=== PATIENT | female | born 1945 | race Caucasian/White ===

== ENCOUNTER 2016-11-22 13:32 | Emergency (ER) ==
[2016-11-22 14:29] LABS: MANUAL DIFF NEEDED? NO
[2016-11-22 14:57] LABS: BASO% 0.6 % (0.0-0.8); EOS# 0.05 X1000 (0.0-0.7); EOS% 0.6 % (0.0-10.0); HEMATOCRIT 39.4 % (37.0-47.0); HEMOGLOBIN 12.7 g/dL (12.0-16.0); IMM GRAN# 0.02 X1000 (0.0-0.04); IMM GRAN% 0.3 % (0.0-0.5); LYMPH# 1.85 X1000 (1.2-3.4); LYMPH% 23.4 % (20.5-51.1); MCH 28.2 PG (27-31); MCHC 32.2 g/dL (33-37); MCV 87.6 FL (81-99); MONO# 0.54 X1000 (0.11-0.59); MONO% 6.8 % (1.7-9.3); MPV 11.1 FL (7.4-10.4); NEUT% 68.3 % (42.2-75.2); PLT 386 X1000 (130-400)
[2016-11-22 15:05] LABS: INR 3.19; PROTIME 34.2 Seconds (9.2-11.7); PTT 40.6 Seconds (22.0-36.0)
[2016-11-22 15:07] LABS: ALBUMIN 4.1 g/dL (3.5-5.0); CALCIUM 10.1 mg/dL (8.8-10.2); POTASSIUM 3.8 mmol/L (3.5-5.1); TOTAL BILIRUBIN 0.37 mg/dL (0.20-1.00); TOTAL PROTEIN 7.6 g/dL (6.3-8.3)
--- NOTE | 2016-11-22 16:39 | PROVIDER DOCUMENTATION ---
HPI-General Adult - General Chief Complaint: GI Bleed Stated Complaint: RECTAL BLEED Time Seen by Provider: 11/22/16 16:11 Source: patient Allergies/Adverse Reactions: Patient Allergies Allergy/AdvReac Type Severity Reaction Status Date / Time chlophedianol HCl * Allergy Intermediate Unknown Verified 10/31/16 18:38 [From [facility]] codeine [Codeine] Allergy Intermediate Unknown Verified 10/31/16 18:38 dexbrompheniramine maleate * Allergy Intermediate Unknown Verified 10/31/16 18: 38 [From [facility]] metronidazole [From Flagyl] Allergy Intermediate Unknown Verified 10/31/16 18:38 Metronidazole HCl * Allergy Intermediate Unknown Verified 10/31/16 18:38 [From Flagyl] pseudoephedrine HCl * Allergy Intermediate Unknown Verified 10/31/16 18:38 [From [facility]] Home Medications: Home Medication List Medication Instructions Recorded Confirmed Last Taken Type Aspirin 325 mg PO DAILY 06/16/16 10/31/16 10/31/16 07:30 History Dicyclomine [Bentyl] 10 mg PO TID PRN 06/16/16 10/31/16 10/31/16 07:00 History Diltiazem [Cardizem] 60 mg PO TID 06/16/16 10/31/16 10/31/16 12:00 History Glimepiride 1 tab PO DAILY 06/16/16 10/31/16 10/30/16 18:00 History Isosorbide Mononitrate E.r. [Imdur] 60 mg PO DAILY 06/16/16 10/31/16 10/31/16 07 :30 History LISINOpril [Prinivil] 20 mg PO BID 06/16/16 10/31/16 10/31/16 07:30 History Nateglinide 120 mg PO DAILY 06/16/16 10/31/16 10/31/16 07:30 History Nitroglycerin [Nitrostat] 0.4 mg SL DIRECTED PRN 06/16/16 10/31/16 Unknown History Omeprazole 20 mg PO DAILY 06/16/16 10/31/16 10/31/16 07:30 History Potassium Chloride [Klor-Con 10] 20 meq PO BID 06/16/16 10/31/16 10/31/16 07:30 History SIMVAstatin [Zocor] 40 mg PO QHS 06/16/16 10/31/16 10/30/16 18:00 History Warfarin Sodium 5 mg PO DAILY 06/16/16 10/31/16 10/30/16 19:00 History Warfarin [Coumadin] 3 mg PO DAILY 06/16/16 10/31/16 10/30/16 19:00 History Lactobacillus Rhamnosus GG 1 each PO BID #0 capsule 06/20/16 10/31/16 Unknown Rx [Culturelle] Sucralfate [Carafate Liquid] 1 gm PO Q6H #0 udc 06/20/16 10/31/16 10/31/16 07: 30 Rx Iron Polysaccharide Complex 150 mg PO BID 10/31/16 10/31/16 10/31/16 09:30 History [Nu-Iron 150] Warfarin [Coumadin] 1.5 mg PO QHS 10/31/16 10/31/16 10/30/16 19:00 History - History of Present Illness -Gen Adult Nature of Presenting Problems: Pt. is 70 yof that presents with c/o rectal bleeding that began on Saturday. Pt. reports she has a Hx of a blood clot in her bowel and is taking warafin. Pt. reports she has been feeling weak and spoke to her PCP (Dr. Okeefe) whom told her to hold off on her warafin and come to the ED for evaluation. Pt. reports the blood is mixed in with her stool and that it is bright red. Pt. denies any other symptoms at time of exam. Location of Pain/Injury: reports: none. denies: head, face, mouth, neck, chest , upper extremity, hand(s), abdomen, back, pelvis, genitalia, lower extremity, feet, upper body, lower body, generalized Pain Radiation: reports: no radiation Quality of Pain: reports: none. denies: aching, burning, cramping, dull, fullness, indigestion, pressure, sharp, stabbing, tearing, throbbing, tightness Severity: denies: mild, moderate, severe Onset/Duration: reports: abrupt, 3 days ago Timing: reports: still present. denies: improving, gone now, resolved prior to arrival, intermittent, constant, changing over time, getting worse Context/Activities at Onset: reports: none. denies: recent emotional stress, recent physical stress, recent trauma history, possible bad food, cold exposure , out of country travel Modifying Factors: improves with: nothing Associated Symptoms: reports: fatigue, malaise, other (Rectal bleeding). denies : anxiety, arm pain, back/neck pain, chest pain, constipation, cough, diaphoresis, diarrhea, dizziness, EENT symptoms, fever/chills, genitourinary problems, headaches, heartburn, joint pain, loss of appetite, muscle aches, sinus congestion/drainage, nausea, rash, seizure, shortness of breath, sensory/ motor loss, pain with inspiration, swelling/mass in abdomen, syncope, vomiting, weakness, trouble walking Similar Symptoms Previously?: Yes Recently seen or treated by another doctor?: No Review of Systems - Adult - REVIEW OF SYSTEMS - ADULT Constitutional: reports: see HPIshantanu. denies: chills, fever Eyes: reports: see HPI. denies: discharge, blurred vision, double vision Ears, Nose, Mouth & Throat: reports: see HPI. denies: ear discharge, ear pain, sinus problem, nose pain, loose teeth, mouth/dental pain, throat pain, throat swelling Cardiovascular: reports: see HPI. denies: chest pain, irregular heart rate, palpitations, syncope Respiratory: reports: see HPI. denies: cough, dyspnea on exertion, pleurisy, shortness of breath, wheezing Gastrointestinal: reports: see HPI, rectal bleeding. denies: abdominal pain, hematemesis, constipation, difficulty swallowing, frequent heartburn, nausea, vomiting Genitourinary: reports: see HPI. denies: dysuria, discharge, hematuria, hesitency, urgency Musculoskeletal: reports: see HPI. denies: bone pain, back pain, joint pain, joint swelling, muscle aches, neck pain Integumentary: reports: see HPI. denies: hives, hair loss, itching, rash, skin thickening Neurological: reports: see HPI. denies: ataxia, headache/migraines, numbness, seizure, tremors Psychiatric: reports: see HPI. denies: anxiety, depression, emotional problems , insomnia, panic attacks, suicidal thoughts Past History - Adult - PAST MEDICAL HISTORY-ADULT Review of Records: reports: Old Records Reviewed, Nursing Assessment Review, Medications Reviewed, Social history reviewed & non-contributory. Major Childhood Illnesses: reports: denies history Cardiovascular: reports: A-Fib Neurological: reports: CVA Endocrine/Immune: reports: Diabetes - PRIOR SURGERIES/PROCEDURES Surgical/Procedure History: reports: appendectomy, hysterectomy, orthopedic ( extremity) - IMMUNIZATION STATUS Childhood Immunizations: See Nurse Assessment Flu Vaccine: See Nurse Assessment - FAMILY HISTORY Family History: reviewed, not pertinent - SOCIAL HISTORY Smoking: denies Physical Exam-General - PHYSICAL EXAM-ADULT Initial Vital Signs Reviewed: Yes - CONSTITUTIONAL General Appearance: alert, mild distress, thin. negative: anxious, lethargic, slow to respond, obtunded, combative - EYES Eyes: PERRL/EOMI, pink conjunctivae. negative: conjuctival exudate, scleral icterus, subconjunctival hemorrhage - HEAD, EARS, NOSE, MOUTH & THROAT HENMT: normocephalic/atraumatic, moist mucous membranes. negative: angioedema, frontal tenderness, maxillary tenderness - NECK Neck: non-tender, full range of motion, supple, normal inspection. negative: lymphadenopathy, trachial deviation, thyromegaly - RESPIRATORY Respiratory: lungs clear, normal breath sounds. negative: crackles, rales, rhonchi, stridor, wheezing - CARDIOVASCULAR Cardiovascular: normal peripheral pulses, regular rate, rhythm, no JVD, no murmur. negative: extra beats, friction rub, irregularly irregular - CHEST (BREASTS) Chest/Breast: deferred - GASTROINTESTINAL (ABDOMEN) Abdominal Exam: normal bowel sounds, non tender, soft. negative: distended, guarding, rigid, rebound, tenderness, hernia, mass - GENITOURINARY Female Genitalia/Pelvic Exam: deferred Rectal Exam: normal rectal tone, hemorrhoids (Internal). negative: black stool , blood streaked stool, mass Hemoccult Exam: heme negative stool - LYMPHATIC Lymphatic: no adenopathy. negative: axilla node tender, cervical node tenderness - MUSCULOSKELETAL Back Exam: normal inspection, no CVA tenderness, no vertebral tenderness. negative: ecchymosis, swelling, vertebral tenderness Extremity: normal range of motion, non-tender, normal gait, normal inspection. negative: deformity, erythema, inflammation, swelling, tenderness Peripheral Pulses: radial (R): 2+, radial (L): 2+ - SKIN Integumentary: normal color, normal turgor, warm/dry. negative: cyanosis, diaphoresis, ecchymosis, erythema, jaundice, mottled, pallor, petechiae, purpura , rash, swelling, tenderness - NEUROLOGIC Neurologic: grossly normal, no motor/sensory deficits. negative: aphasia, facial droop, focal weakness, motor weakness, sensory deficit - PSYCHIATRIC Psych/Mental Status: normal mood/affect, normal thought content, normal thought process, oriented x 3. negative: anxious, paranoid, tearful Progress - PLAN OF CARE/RESULTS Progress/Plan/Lab Results: Discussed results and plan of care with patient. Patient agrees with plan and verbalizes understanding. Vital Signs Temp Pulse Resp BP Pulse Ox 11/22/16 13:50 98.4 F 86 16 166/96 100 chlophedianol HCl * [From [facility]] Allergy (Intermediate, Verified 10/31/16 18 :38) Unknown codeine [Codeine] Allergy (Intermediate, Verified 10/31/16 18:38) Unknown nervous dexbrompheniramine maleate * [From [facility]] Allergy (Intermediate, Verified 18:38) Unknown metronidazole [From Flagyl] Allergy (Intermediate, Verified 10/31/16 18:38) Unknown Metronidazole HCl * [From Flagyl] Allergy (Intermediate, Verified 10/31/16 18:38 ) Unknown pseudoephedrine HCl * [From [facility]] Allergy (Intermediate, Verified 10/31/16 18:38) Unknown Aspirin 325 mg PO DAILY 06/16/16 Dicyclomine [Bentyl] 10 mg PO TID PRN 06/16/16 Diltiazem [Cardizem] 60 mg PO TID 06/16/16 Glimepiride 1 tab PO DAILY 06/16/16 Isosorbide Mononitrate E.r. [Imdur] 60 mg PO DAILY 06/16/16 LISINOpril [Prinivil] 20 mg PO BID 06/16/16 Nateglinide 120 mg PO DAILY 06/16/16 Nitroglycerin [Nitrostat] 0.4 mg SL DIRECTED PRN 06/16/16 Omeprazole 20 mg PO DAILY 06/16/16 Potassium Chloride [Klor-Con 10] 20 meq PO BID 06/16/16 SIMVAstatin [Zocor] 40 mg PO QHS 06/16/16 Warfarin Sodium 5 mg PO DAILY 06/16/16 Warfarin [Coumadin] 3 mg PO DAILY 06/16/16 Lactobacillus Rhamnosus GG [Culturelle] 1 each PO BID #0 capsule 06/20/16 Sucralfate [Carafate Liquid] 1 gm PO Q6H #0 udc 06/20/16 Iron Polysaccharide Complex [Nu-Iron 150] 150 mg PO BID 10/31/16 Warfarin [Coumadin] 1.5 mg PO QHS 10/31/16 Laboratory 11/22/16 11/22/16 11/22/16 14:09 14:09 14:09 WBC 7.90 RBC 4.50 Hgb 12.7 Hct 39.4 MCV 87.6 MCH 28.2 MCHC 32.2 L RDW Std Deviation 13.6 Plt Count 386 MPV 11.1 H Immature Gran % (Auto) 0.3 Neut % (Auto) 68.3 Lymph % (Auto) 23.4 [place] % (Auto) 6.8 Eos % (Auto) 0.6 Baso % (Auto) 0.6 Immature Gran # (Auto) 0.02 Neut # (Auto) 5.39 Lymph # (Auto) 1.85 [place] # (Auto) 0.54 Eos # (Auto) 0.05 Baso # (Auto) 0.05 PT 34.2 H INR 3.19 PTT (Actin FS) 40.6 H Sodium 139 Potassium 3.8 Chloride 98 Carbon Dioxide 23 L Anion Gap 18 BUN 11 Creatinine 1.2 H Estimated GFR/1.73 m2 45 BUN/Creatinine Ratio 9 Glucose 265 H Calculated Osmolality 286 Calcium 10.1 Total Bilirubin 0.37 AST 17 ALT 12 Alkaline Phosphatase 185 H Total Protein 7.6 Albumin 4.1 Globulin 3.5 Albumin/Globulin Ratio 1.2 Orders Category Date Time Status CBC WITH ELECTRONIC DIFF [HEME] Stat Lab 11/22/16 14:09 Completed CMP [COMPREHENSIVE METABOLIC PANEL] [CHEM] Stat Lab 11/22/16 14:09 Completed OCCULT BLOOD SCREENING [STOOL] Stat Lab 11/22/16 16:34 Completed PROTIME WITH INR [COAG] Stat Lab 11/22/16 14:09 Completed PTT [COAG] Stat Lab 11/22/16 14:09 Completed Laboratory Tests 11/22/16 11/22/16 11/22/16 14:09 14:09 14:09 WBC 7.90 RBC 4.50 Hgb 12.7 Hct 39.4 MCV 87.6 MCH 28.2 MCHC 32.2 L RDW Std Deviation 13.6 Plt Count 386 MPV 11.1 H Immature Gran % (Auto) 0.3 Neut % (Auto) 68.3 Lymph % (Auto) 23.4 [place] % (Auto) 6.8 Eos % (Auto) 0.6 Baso % (Auto) 0.6 Immature Gran # (Auto) 0.02 Neut # (Auto) 5.39 Lymph # (Auto) 1.85 [place] # (Auto) 0.54 Eos # (Auto) 0.05 Baso # (Auto) 0.05 PT 34.2 H INR 3.19 PTT (Actin FS) 40.6 H Sodium 139 Potassium 3.8 Chloride 98 Carbon Dioxide 23 L Anion Gap 18 BUN 11 Creatinine 1.2 H Estimated GFR/1.73 m2 45 BUN/Creatinine Ratio 9 Glucose 265 H Calculated Osmolality 286 Calcium 10.1 Total Bilirubin 0.37 AST 17 ALT 12 Alkaline Phosphatase 185 H Total Protein 7.6 Albumin 4.1 Globulin 3.5 Albumin/Globulin Ratio 1.2 Discussed the results with Dr. Carlos and he agrees with plan. Departure - Departure Time of Disposition Order: 17:01 DIAGNOSIS: Hemorrhoids Qualifiers: Hemorrhoid type: unspecified Qualified Code(s): K64.9 - Unspecified hemorrhoids Disposition: HOME 01 Certified Medical Emergency: Emergent Condition: Stable Additional Instructions: Follow up with primary care physician Return to ED for any concerns or worsening of symptoms ED Follow Up Instructions: You have been treated by a care provider in the Emergency Department. These instructions are being provided to you so you can have an understanding of how to care for yourself upon discharge. Upon discharge from the Emergency Department, you are responsible for making arrangements for follow-up care by a physician of your choice. Take all prescribed medications as directed. Return to the Emergency Department immediately for any new or worsening symptoms. You may call the Physician Referral phone number at [phone] to obtain a list of Physicians who are taking new patients. Referrals: Joce Okeefe MD [Primary Care Provider] - Roman Chávez MD [STAFF PHYSICIAN] - Attestation - Physician/ [place] Attestation Patient care was provided by Advanced Practice Provider:: Yes Advanced Practice Provider:: Adan Coronel Advanced Practice Provider documentation review:: The Mid-level provider documentation, treatment plan and medical decision making was reviewed by the physician who agrees with all treatment and medical decision making by the MLP.
[2016-11-22 17:27] VITALS: BP 178/92
== END 2016-11-22 17:26 | disposition home or self-care (01) ==
LOC: ED 13:32
DX: K64.8 Other hemorrhoids (principal); K62.5 Hemorrhage of anus and rectum; R53.1 Weakness; R53.83 Other fatigue; R53.81 Other malaise; I48.91 Unspecified atrial fibrillation; E11.9 Type 2 diabetes mellitus without complications; Z79.01 Long term (current) use of anticoagulants; Z79.899 Other long term (current) drug therapy; Z79.82 Long term (current) use of aspirin
CPT/HCPCS: 80053; 82270; 85025; 85610; 85730